=== PATIENT | male | born 1940 | race Native Hawaiian/Other Pacific Islander ===

== ENCOUNTER 2017-03-19 09:57 | Outpatient (CLI) | payer OTHER | END 2017-03-19 18:55 | disposition home or self-care (01) | LOC: RAD 09:57 | DX: M25.512 Pain in left shoulder (principal); M25.532 Pain in left wrist ==

== ENCOUNTER 2017-10-07 13:00 | Outpatient (CLI) | payer OTHER | END 2017-10-07 18:00 | disposition home or self-care (01) | LOC: CT 13:00 | DX: R55 Syncope and collapse (principal) ==

== ENCOUNTER 2018-09-30 11:14 | Outpatient (CLI) | payer OTHER | END 2018-09-30 19:11 | disposition home or self-care (01) | LOC: LABW 11:14 | DX: B35.1 Tinea unguium (principal) | CPT/HCPCS: 36415; 84450; 84460 ==

== ENCOUNTER 2018-10-14 10:36 | Outpatient (CLI) | payer OTHER | END 2018-10-14 20:22 | disposition home or self-care (01) | LOC: RAD 10:36 | DX: R42 Dizziness and giddiness (principal); J44.9 Chronic obstructive pulmonary disease, unspecified ==

== ENCOUNTER 2018-10-29 08:22 | Outpatient (CLI) | payer OTHER ==
[2018-10-29] MEDS ORDERED: SOTA80TA2 PO (19:50)
[2018-10-29] MEDS ORDERED: HYDR25TA60 PO (19:50)
[2018-10-29] MEDS ORDERED: AMLODIPINE BESYLATE PO (19:50)
[2018-10-29] MEDS ORDERED: MECLIZINE25 MG PO (19:51)
[2018-10-29] MEDS ORDERED: LAMICTAL200 MG PO (19:51)
== END 2018-10-29 21:40 | disposition home or self-care (01) ==
LOC: CT 08:22
DX: I25.10 Atherosclerotic heart disease of native coronary artery without angina pectoris (principal)
CPT/HCPCS: 36415; 82565; 84520

== ENCOUNTER 2018-10-29 09:28 | Emergency (ER) | payer OTHER ==
[~2018-10-29] VITALS: Ht 167.6 cm; Wt 44.6 kg
[2018-10-29 11:40] VITALS: BP 127/85; TEMP 98
[2018-10-29] MEDS ORDERED: AMLODIPINE BESYLATE PO (19:50)
[2018-10-29] MEDS ORDERED: SOTA80TA2 PO (19:50)
[2018-10-29] MEDS ORDERED: HYDR25TA60 PO (19:50)
[2018-10-29] MEDS ORDERED: LAMICTAL200 MG PO (19:51)
[2018-10-29] MEDS ORDERED: MECLIZINE25 MG PO (19:51)
== END 2018-10-29 11:40 | disposition home or self-care (01) ==
LOC: ED 09:28
DX: M51.27 Other intervertebral disc displacement, lumbosacral region (principal)
CPT/HCPCS: 99283

== ENCOUNTER 2018-10-29 19:29 | Outpatient (CLI) | payer OTHER ==
[2018-10-29] MEDS ORDERED: AMLODIPINE BESYLATE PO (19:50)
[2018-10-29] MEDS ORDERED: HYDR25TA60 PO (19:50)
[2018-10-29] MEDS ORDERED: SOTA80TA2 PO (19:50)
[2018-10-29] MEDS ORDERED: LAMICTAL200 MG PO (19:51)
[2018-10-29] MEDS ORDERED: MECLIZINE25 MG PO (19:51)
[2018-11-05] MEDS ORDERED: ESCI10TA PO (09:14)
[2018-11-05] MEDS ORDERED: VITAMIN D50000 UNIT PO (09:14)
[2018-11-05] MEDS ORDERED: LEVAQUIN250 MG PO (09:14)
== END 2018-10-29 19:32 | disposition short-term general hospital (02) ==
LOC: AMB 19:29
DX: T44.7X2A Poisoning by beta-adrenoreceptor antagonists, intentional self-harm, initial encounter (principal); Y92.098 Other place in other non-institutional residence as the place of occurrence of the external cause
CPT/HCPCS: A0425; A0427

== ENCOUNTER 2018-10-29 19:36 | Emergency (ER) | payer OTHER ==
[~2018-10-29] VITALS: Ht 167.6 cm; Wt 65.8 kg
[2018-10-29] MEDS ORDERED: SOTA80TA2 PO (19:50)
[2018-10-29] MEDS ORDERED: AMLODIPINE BESYLATE PO (19:50)
[2018-10-29] MEDS ORDERED: HYDR25TA60 PO (19:50)
[2018-10-29] MEDS ORDERED: MECLIZINE25 MG PO (19:51)
[2018-10-29] MEDS ORDERED: LAMICTAL200 MG PO (19:51)
[2018-10-29 20:20] LABS: PLATELET COUNT 258 K/uL (142-355)
[2018-10-29 20:28] LABS: POTASSIUM 2.9 mmol/L (3.6-5.2)
[2018-10-29 23:30] VITALS: BP 149/90; TEMP 98.2
== END 2018-10-29 23:34 | disposition other institution (70) ==
LOC: ED 19:36
PROVIDERS: Emergency Medicine
DX: T44.7X2A Poisoning by beta-adrenoreceptor antagonists, intentional self-harm, initial encounter (principal); Y92.89 Other specified places as the place of occurrence of the external cause
CPT/HCPCS: 80053; 80320; 80329; 82550; 83735; 84484; 85027; 93005; 96365; 99285

== ENCOUNTER 2018-10-30 15:04 | Inpatient (IN) | payer OTHER ==
[2018-10-30] VITALS (9 sets, daily range): BP systolic 108–139; BP diastolic 69–79; TEMP 98.3–98.8; Ht 170.2 cm; Wt 66.2 kg
[~2018-10-30] VITALS: Ht 170.2 cm; Wt 66.2 kg
[~2018-10-30 15:04] MED LIST: AMLODIPINE BESYLATE PO; HYDR25TA60 PO; LAMICTAL200 MG PO; MECLIZINE25 MG PO; SOTA80TA2 PO
[2018-10-31] VITALS (35 sets, daily range): BP systolic 91–166; BP diastolic 45–93; TEMP 98.1–99
[2018-10-31 07:54] LABS: PLATELET COUNT 216 K/uL (142-355)
[2018-10-31 08:02] LABS: POTASSIUM 3.2 mmol/L (3.6-5.2)
[2018-11-01] VITALS (82 sets, daily range): BP systolic 12–160; BP diastolic 48–96; TEMP 97.9–98.9
[2018-11-01 06:19] LABS: PLATELET COUNT 214 K/uL (142-355)
[2018-11-01 06:59] LABS: POTASSIUM 3.5 mmol/L (3.6-5.2)
[2018-11-02] VITALS (33 sets, daily range): BP systolic 113–161; BP diastolic 56–93; TEMP 97.9–98.2
[2018-11-02 05:45] LABS: PLATELET COUNT 247 K/uL (142-355)
[2018-11-02 06:10] LABS: POTASSIUM 3.6 mmol/L (3.6-5.2)
[2018-11-02] MEDS ORDERED: DILT30TA24 PO (17:10)
[2018-11-02] MEDS ORDERED: K-TAB20 MEQ PO (17:11)
[2018-11-02] MEDS ORDERED: PRED10TA27 PO (17:13)
[2018-11-02] MEDS ORDERED: APIX1TAB PO (17:15)
== END 2018-11-02 15:50 | disposition other institution (70) | DRG 190 ==
LOC: ICU 15:04
PROVIDERS: Family Medicine; ADMIT Emergency Medicine
DX: J44.0 Chronic obstructive pulmonary disease with (acute) lower respiratory infection (principal); J18.8 Other pneumonia, unspecified organism; J44.1 Chronic obstructive pulmonary disease with (acute) exacerbation; D72.828 Other elevated white blood cell count; E87.6 Hypokalemia; I10 Essential (primary) hypertension; G62.89 Other specified polyneuropathies; I48.91 Unspecified atrial fibrillation; K59.09 Other constipation; E86.0 Dehydration
CPT/HCPCS: 36415; 80048; 80053; 80202; 85027; 87899; 93005; 94640; 94664; 94760; J1650; J1956; J2930; J3370; J3480; J3490

== ENCOUNTER 2018-12-07 15:59 | Emergency (ER) | payer OTHER ==
[~2018-12-07] VITALS: Ht 170.2 cm; Wt 64.9 kg
[~2018-12-07 15:59] MED LIST changes: +APIX1TAB PO; +DILT30TA24 PO; +ESCI10TA PO; +K-TAB20 MEQ PO; +LEVAQUIN250 MG PO; +PRED10TA27 PO; +VITAMIN D50000 UNIT PO
[2018-12-07 16:04] VITALS: TEMP 98.5
[2018-12-07 17:06] LABS: PLATELET COUNT 234 K/uL (142-355)
[2018-12-07 17:10] VITALS: BP 122/71
[2018-12-07 17:16] LABS: POTASSIUM 3.9 mmol/L (3.6-5.2)
== END 2018-12-07 17:52 | disposition home or self-care (01) ==
LOC: ED 15:59
PROVIDERS: Student in an Organized Health Care Education/Training Program
DX: N41.9 Inflammatory disease of prostate, unspecified (principal); N30.91 Cystitis, unspecified with hematuria
CPT/HCPCS: 80053; 81000; 82150; 83690; 85027; 96360; 99284

== ENCOUNTER 2019-02-14 18:31 | Emergency (ER) | payer OTHER ==
[~2019-02-14] VITALS: Ht 170.2 cm; Wt 64.9 kg
[2019-02-14 18:39] VITALS: BP 243/127; TEMP 98
== END 2019-02-14 18:45 | disposition home or self-care (01) ==
LOC: ED 18:31
DX: I10 Essential (primary) hypertension (principal)
CPT/HCPCS: 99281

== ENCOUNTER 2019-02-26 19:35 | Outpatient (CLI) | payer OTHER ==
[2019-02-26] MEDS ORDERED: NEXIUM40 M1 PO (20:01)
[2019-02-26] MEDS ORDERED: SODIUM BICAR650 MG PO (20:01)
[2019-02-26] MEDS ORDERED: PROZAC10 MG PO (20:01)
[2019-02-26] MEDS ORDERED: OXYGEN (20:02)
== END 2019-02-26 19:37 | disposition short-term general hospital (02) ==
LOC: AMB 19:35
DX: R07.89 Other chest pain (principal)
CPT/HCPCS: A0425; A0427

== ENCOUNTER 2019-02-26 19:41 | Emergency (ER) | payer OTHER ==
[~2019-02-26] VITALS: Ht 170.2 cm; Wt 64.9 kg
[2019-02-26] MEDS ORDERED: NEXIUM40 M1 PO (20:01)
[2019-02-26] MEDS ORDERED: PROZAC10 MG PO (20:01)
[2019-02-26] MEDS ORDERED: SODIUM BICAR650 MG PO (20:01)
[2019-02-26] MEDS ORDERED: OXYGEN (20:02)
[2019-02-26 20:15] LABS: PLATELET COUNT 239 K/uL (142-355)
[2019-02-26 20:50] LABS: POTASSIUM 2.9 mmol/L (3.6-5.2); SODIUM 140 mmol/L (136-145)
[2019-02-26 22:50] VITALS: BP 154/94; TEMP 97.8
== END 2019-02-26 22:53 | disposition home or self-care (01) ==
LOC: ED 19:41
PROVIDERS: Family Medicine
DX: R00.2 Palpitations (principal); E87.6 Hypokalemia; I10 Essential (primary) hypertension; I48.91 Unspecified atrial fibrillation; F17.210 Nicotine dependence, cigarettes, uncomplicated
CPT/HCPCS: 80053; 81000; 82550; 84484; 85027; 93005; 99284

== ENCOUNTER 2019-03-29 13:00 | Emergency (ER) | payer OTHER ==
[~2019-03-29] VITALS: Ht 170.2 cm; Wt 72.6 kg
[2019-03-29 13:00] VITALS: TEMP 98.2
[~2019-03-29 13:00] MED LIST changes: +NEXIUM40 M1 PO; +OXYGEN; +PROZAC10 MG PO; +SODIUM BICAR650 MG PO
[2019-03-29] MEDS ORDERED: ELIQUIS5 MG PO (13:17)
[2019-03-29] MEDS ORDERED: SODI650T PO (13:19)
[2019-03-29] MEDS ORDERED: LORA0.5T17 PO (13:22)
[2019-03-29] MEDS ORDERED: HYDR25TA57 PO (13:22)
[2019-03-29] MEDS ORDERED: TRAMADOL HYDROC50 MG PO (13:23)
[2019-03-29] MEDS ORDERED: ACID REDUCER150 M1 PO (13:24)
[2019-03-29] MEDS ORDERED: MECLIZINE25 MG PO (13:25)
[2019-03-29 14:40] LABS: PLATELET COUNT 219 K/uL (142-355)
[2019-03-29 14:45] LABS: POTASSIUM 2.9 mmol/L (3.6-5.2)
[2019-03-29 16:45] VITALS: BP 163/109
== END 2019-03-29 16:59 | disposition home or self-care (01) ==
LOC: ED 13:00
PROVIDERS: Emergency Medicine
DX: G44.209 Tension-type headache, unspecified, not intractable (principal); E83.42 Hypomagnesemia; R25.2 Cramp and spasm; I10 Essential (primary) hypertension; F17.210 Nicotine dependence, cigarettes, uncomplicated
CPT/HCPCS: 80053; 83735; 85027; 96372; 99283; J3475

== ENCOUNTER 2019-06-03 13:50 | Outpatient (CLI) | payer OTHER ==
[~2019-06-03 13:50] MED LIST changes: +ACID REDUCER150 M1 PO; +ELIQUIS5 MG PO; +HYDR25TA57 PO; +LORA0.5T17 PO; +SODI650T PO; +TRAMADOL HYDROC50 MG PO
== END 2019-06-03 13:53 | disposition short-term general hospital (02) ==
LOC: AMB 13:50
DX: R07.89 Other chest pain (principal); M79.602 Pain in left arm; R94.31 Abnormal electrocardiogram [ECG] [EKG]
CPT/HCPCS: A0425; A0427

== ENCOUNTER 2019-06-03 13:54 | Emergency (ER) | payer OTHER ==
[~2019-06-03] VITALS: Ht 170.2 cm; Wt 66.7 kg
[2019-06-03 13:54] VITALS: BP 195/86; TEMP 97
[2019-06-03 14:38] LABS: PLATELET COUNT 246 K/uL (142-355)
[2019-06-03 14:48] LABS: POTASSIUM 4.6 mmol/L (3.6-5.2)
[2019-06-03 16:00] LABS: PARTIAL THROMBOPLASTIN TIME 29.6 SECONDS (24.5-33.6)
== END 2019-06-03 18:50 | disposition home or self-care (01) ==
LOC: ED 13:59
PROVIDERS: Student in an Organized Health Care Education/Training Program
DX: J44.1 Chronic obstructive pulmonary disease with (acute) exacerbation (principal); J18.9 Pneumonia, unspecified organism; K59.09 Other constipation; R06.02 Shortness of breath; F17.210 Nicotine dependence, cigarettes, uncomplicated; R94.31 Abnormal electrocardiogram [ECG] [EKG]
CPT/HCPCS: 36415; 80053; 81000; 83690; 83735; 83880; 84484; 85027; 85610; 85730; 87040; 93005; 96365; 96366; 99284; J0456; J0696; J2405; J2765; J3475

== ENCOUNTER 2020-05-15 09:39 | Emergency (ER) | payer OTHER ==
[~2020-05-15] VITALS: Ht 170.2 cm; Wt 61.2 kg
[2020-05-15 09:40] VITALS: TEMP 98.7
[2020-05-15 10:10] LABS: PLATELET COUNT 252 K/uL (142-355)
[2020-05-15 10:14] LABS: POTASSIUM 3.7 mmol/L (3.6-5.2)
[2020-05-15 10:25] LABS: PARTIAL THROMBOPLASTIN TIME 28.9 SECONDS (24.5-33.6)
[2020-05-15 15:29] VITALS: BP 146/68
== END 2020-05-15 15:31 | disposition home or self-care (01) ==
LOC: ED 09:39
PROVIDERS: Emergency Medicine Emergency Medical Services
DX: K92.2 Gastrointestinal hemorrhage, unspecified (principal)
CPT/HCPCS: 80053; 82272; 85027; 85610; 85730; 96360; 96375; 99284; J2405

== ENCOUNTER 2020-07-26 14:25 | Inpatient (IN) | payer OTHER ==
[~2020-07-26] VITALS: Ht 170.2 cm; Wt 63.7 kg
[2020-07-26 14:35] VITALS: BP 211/99; TEMP 97
[2020-07-26 16:37] LABS: PLATELET COUNT 253 K/uL (142-355)
[2020-07-26 16:45] LABS: POTASSIUM 4.1 mmol/L (3.6-5.2); SODIUM 139 mmol/L (136-145)
[2020-07-26 17:39] VITALS: BP 152/76
[2020-07-26 20:00] VITALS: BP 133/80; TEMP 97.2
[2020-07-26 20:48] VITALS: BP 144/92; TEMP 98; Ht 170.2 cm; Wt 63.7 kg
[2020-07-27] VITALS: BP 101/58; TEMP 98.4
[2020-07-27 03:59] VITALS: BP 117/72; TEMP 98.6
[2020-07-27 08:00] VITALS: BP 153/74; TEMP 98.2
[2020-07-27 12:13] VITALS: BP 148/72; TEMP 98.8
== END 2020-07-27 14:24 | disposition home or self-care (01) | DRG 204 ==
LOC: ED 14:25 → MED/SURG 17:30
PROVIDERS: Hospitalist; ADMIT Internal Medicine; ATTEND Internal Medicine
DX: R04.2 Hemoptysis (principal); R51.9 Headache, unspecified; I48.91 Unspecified atrial fibrillation; Z79.01 Long term (current) use of anticoagulants; I10 Essential (primary) hypertension; K21.9 Gastro-esophageal reflux disease without esophagitis; J43.9 Emphysema, unspecified
CPT/HCPCS: 36415; 80053; 82550; 83880; 84484; 85027; 85379; 85610; 85730; 93005; 94760; 96374; 96375; 96376; 99284; J0360; J1650; J2270; J2405; J3490

== ENCOUNTER 2020-08-08 08:33 | Emergency (ER) | payer OTHER ==
[~2020-08-08] VITALS: Ht 170.2 cm; Wt 63.5 kg
[2020-08-08 08:33] VITALS: TEMP 97.3
[2020-08-08 09:25] LABS: PLATELET COUNT 291 K/uL (142-355)
[2020-08-08 09:36] LABS: POTASSIUM 4.2 mmol/L (3.6-5.2); SODIUM 143 mmol/L (136-145)
[2020-08-08 13:30] VITALS: BP 161/89
== END 2020-08-08 13:48 | disposition home or self-care (01) ==
LOC: ED 08:35
PROVIDERS: Family Medicine
DX: R07.89 Other chest pain (principal); R91.8 Other nonspecific abnormal finding of lung field; R05 Cough; R11.2 Nausea with vomiting, unspecified; Z03.818 Encounter for observation for suspected exposure to other biological agents ruled out
CPT/HCPCS: 80053; 82550; 84484; 85027; 85379; 87635; 93005; 96374; 99284; J2405; U0003

== ENCOUNTER 2020-10-15 09:39 | Inpatient (IN) | payer OTHER ==
[2020-10-15] VITALS (7 sets, daily range): BP systolic 99–159; BP diastolic 58–75; TEMP 98–98.5; Ht 170.2 cm; Wt 63.8 kg
[~2020-10-15] VITALS: Ht 170.2 cm; Wt 63.8 kg
[2020-10-15 10:15] LABS: PLATELET COUNT 271 K/uL (142-355)
[2020-10-15 10:21] LABS: POTASSIUM 3.8 mmol/L (3.6-5.2)
[2020-10-15 10:32] LABS: PARTIAL THROMBOPLASTIN TIME 19.4 SECONDS (24.5-33.6)
--- NOTE | 2020-10-15 14:34 | NUR ---
CONTACTED [facility] TMLLIMR-[phone] AND REQUESTED HP, HOME MED LIST AND OTHER PERTINENT INFORMATION BE FAXED TO [facility].
[2020-10-15] MEDS ORDERED: SENNA PLUS 50-81 CAP PO (15:15)
[2020-10-15] MEDS ORDERED: PLAV PO (15:16)
[2020-10-15] MEDS ORDERED: LABETALOL200 MG PO (15:18)
[2020-10-15] MEDS ORDERED: OXYC5TAB24 PO (15:18)
[2020-10-15] MEDS ORDERED: D325 MCG PO (15:19)
[2020-10-15] MEDS ORDERED: DIPH50CA30 PO (15:20)
[2020-10-15] MEDS ORDERED: ONDANSETRON4 M2 PO (15:20)
[2020-10-15] MEDS ORDERED: HYOS0.128 PO (16:46)
[2020-10-15] MEDS ORDERED: MORP20SO3 SL (16:51)
[2020-10-15] MEDS ORDERED: HALO2CON2 PO (16:52)
[2020-10-15] MEDS ORDERED: ACET650S18 RE (16:53)
[2020-10-15] MEDS ORDERED: ALBUSOL INH (16:55)
[2020-10-15] MEDS ORDERED: PROCHLORPER10 MG PO (16:58)
[2020-10-15] MEDS ORDERED: ACET-689 PO (16:58)
--- NOTE | 2020-10-15 17:30 | NUR ---
VERIFIED WITH PT'S CAREGIVER KWAME WARD AT [phone] THAT SHE WANTED TO CONTINUE T0 HONOR PT'S WISHES TO BE A DNR. VERBAL CONSENT GIVEN OVER THE PHONE WITH Olivia RICHMOND RNCN WITNESS. DR ADAMS AWARE. PT'S FAMILY ALSO STATES SHE PLANS TO READMIT TO HOSPICE AFTER D/C FROM HOSPITAL, BUT TO TREAT PT FOR PNA WHILE HERE. DR. ADAMS UPDATED.
--- NOTE | 2020-10-15 19:44 | NUR ---
T/O DR. ADAMS- TO RESTART PT HOME DOSE OXYCODONE.
--- NOTE | 2020-10-16 01:26 | NUR ---
PATIENTIS UP IN BED EATING A SNACK
[2020-10-16 04:32] VITALS: BP 189/84; TEMP 97.4
[2020-10-16 07:44] LABS: PLATELET COUNT 297 K/uL (142-355)
[2020-10-16 07:49] LABS: POTASSIUM 4.4 mmol/L (3.6-5.2)
[2020-10-16 08:00] VITALS: BP 187/86; TEMP 97.9
--- NOTE | 2020-10-16 10:00 | NUR ---
WENT INTO PT'S ROOM, PANCHOUGHTER WAS AT BEDSIDE VISITING. STEPDAUGHTER STATED THAT PT HAD TOLD HER THAT ONE OF THE MEDICAL PERSONEL HAD TOLD HIM THAT HE HAD AIDS, AVIONICS SUPERVISOR CONFIRMED THAT AVIONICS SUPERVISOR DID NOT TELL PT THAT AND DID NOT KNOW WHERE THAT INFORMATION HAD COME FROM. PANCHOUGHTER THEN ASKED IF PT WOULD CONTINUE TO TALK ABOUT CRAZY THINGS. WHEN ASKED BY AVIONICS SUPERVISOR IF PT HAD EVER BEEN DIAGNOSED WITH DEMENTIA, STEPCAROLEUGHTER STATED THAT PT HAD NOT BEEN DIAGNOSED. STEPCAROLEUGHTER STATED THAT AT HOME PT TALKS ABOUT "CRAZY THINGS THAT DO NOT MAKE SENSE" STEPDAUGHTER ALSO STATED THAT OCCASSIONALLY PT STATES THAT HE SEES SPIRITS. PT STATED THAT HE DOES SEE SPIRITS, THAT HE SEES HIS OCCASSIONALLY AND A BLACK MAN.
[2020-10-16 12:00] VITALS: BP 191/83; TEMP 97.9
[2020-10-16 16:00] VITALS: BP 194/98; TEMP 97.9
--- NOTE | 2020-10-16 20:20 | NUR ---
ENTERED PATIENT'S ROOM. PATIENT SITTING UP IN BED WATCHING TV. NAD NOTED. RESPIRATIONS SLOW BUT UNLABORED. NC OFF- PATIENT NON-COMPLIANT WITH WEARING. 22G TO LEFT FOREARM PATENT AND INTACT. NS INFUSING @ 100ML/HR. PATIENT ALERT AND ORIENTED AT THIS TIME. C/O BACK PAIN. OXYCODONE GIVEN WITH PM MEDS. 2000 V/S- B/P 224/111 BY MACHINE. MANUAL B/P WAS 220/104. B/P MEDS GIVEN.
--- NOTE | 2020-10-16 22:15 | NUR ---
IN TO RE-CHECK PATIENT'S B/P. HE IS RESTING QUIETLY IN BED. MANUAL B/P IS 198/96 AT THIS TIME. NAD NOTED. AGAIN PLACED NC ON PATIENT. CALL LIGHT WITHIN EASY REACH.
[2020-10-17] VITALS: BP 166/95; TEMP 97.4
--- NOTE | 2020-10-17 02:10 | NUR ---
IN WITH PCT TO CHANGE PATIENT'S BRIEF AND LINENS. PATIENT TOLERATED WELL. 22G TO LEFT FA INFUSING NS @ 100. INSTRUCTED COLOR CONTROL OPERATOR LIGHT AND HOW TO USE IT AGAIN. PLACED WITHIN EASY REACH OF PATIENT. BED LOCKED AND IN LOWEST POSITION.
--- NOTE | 2020-10-17 03:15 | NUR ---
ENTERED PATIENT'S ROOM. PATIENT SITTING ON THE FLOOR IN FRONT OF HIS BED WHILE HIS BACK IS UP AGAINST THE WALL. BLOOD IS ON THE FLOOR FROM WHERE THE PATIENT TOOK OUT HIS IV. HE STATES, "I WAS GETTING UP TO GO TO THE BATHROOM." WHEN ASKED WHY DIDN'T HE CALL. HE STATES THAT HE DID CALL. FALL WAS UNWITNESSED, BUT PATIENT STATES HE DID HIT HIS HEAD, ALTHOUGH HE ONLY C/O NECK PAIN AT THIS TIME. WHEN PROMPTED, PATIENT RESPONDS NORMALLY TO ALL QUESTIONS REGARDING PERSON, PLACE AND TIME. NO MENTAL STATUS CHANGES NOTED. BLOOD CLEANED UP, V/S TAKEN AND PATIENT ASSISTED BACK INTO BED WITH ASSISTANCE X3. PATIENT STILL C/O NECK PAIN. BED ALARM TURNED ON. 0345- JOSE MANUEL REAL RN CALLED DR. BARCLAY AT THIS TIME TO REPORT FALL. 2-3V C-SPINE ORDERED. NO FURTHER ORDERS GIVEN. AT THIS TIME, I MADE ONE ATTEMPT TO OBTAIN NEW IV SITE. ATTEMPT UNSUCCESSFUL. 0400- INA COSBY FROM ER ATTEMPTED IV SITE. 20G TO LEFT AC X ONE STICK. SUCCESSFUL. IV PATENT AND INTACT. NO SWELLING NOTED. NS INFUSING @ 100ML/HR. 0415- V/S OBTAINED. PATIENT'S B/P REMAINS ELEVATED. 204/102. B/P WAS ELEVATED AT BEGINNING OF SHIFT PRIOR TO PATIENT'S FALL. 0430- LEAD SQL DEVELOPER TAKING PATIENT TO X-RAY VIA W/C. 0445- PATIENT RETURNED TO ROOM. NS INFUSING @ 100ML/HR. NAD NOTED. BED LOCKED AND IN LOWEST POSITION. CALL LIGHT WITHIN REACH. BED ALARM ON. CALLED DR. BARCLAY TO INFORM HIM ABOUT PATIENT'S B/P. TELEPHONE ORDER GIVEN FOR HYDRALAZINE 25MG 1 TAB PO X ONE DOSE NOW.
[2020-10-17 04:00] VITALS: BP 204/102; TEMP 98
--- NOTE | 2020-10-17 05:06 | NUR ---
Patient was admitted with Pneumonia and chronic atrial fib and has a diagnosis of HTN, Hyperlipidemia, lung cancer, and is on Hospice, COPD, TIA, PVD, Anxiety, Dementia, DM, smokes 1 ppd, is on SSI, BP at 166/95 elevated, o2, Cl, BUN, gl all elevated, seizures, back pain, Hypokalemia, Vitamin D Deficiency, Depression, Alcohol D/O, emphysema, RBC, Hgb, Hct, MCHC, Nicotine, and is 67" at 140.8 lbs. and is an 80 yom. IBW = 148+/-10% and kcal needs x 25 to 40 = 1600 to 2700 kcal/day, protein needs x .8 to 1.5 = 54 to 101 grams per dya and fluids for IBW x 25 to 40 = 1600 to 2700 ml/cc per day. BMI at 22 and is wnl's and is 95% of IBW. RD Recommendations: 1-Monitor labs 2-Increae foods high in Fe 3-PT to work with the patient 4-OT to work wiht the patient 5-Add a MVI daily 6-Add an appetite stimulant 7-Add a supplement with meals 8-Add Vitamin C [address] available as needed.
--- NOTE | 2020-10-17 05:30 | NUR ---
PATIENT STATES HE FEELS BETTER, BUT STILL HAS MILD NECK PAIN. HYDRALAZINE 25MG AND TYLENOL 1GM GIVEN AT THIS TIME. NC INTACT @ 3L/MIN. BED LOCKED AND IN LOWEST POSITION. CALL LIGHT WITHIN REACH AND BED ALARM ON. PATIENT DENIES ANY OTHER CONCERNS OR COMPLAINTS AT THIS TIME.
[2020-10-17 07:52] VITALS: BP 164/100; TEMP 97.8
[2020-10-17 08:06] LABS: PLATELET COUNT 329 K/uL (142-355)
[2020-10-17 08:17] LABS: POTASSIUM 3.3 mmol/L (3.6-5.2)
--- NOTE | 2020-10-17 08:56 | NUR ---
ATTEMPTED TO CALL PT'S DAUGHTER KWAME WARD TO NOTIFY HER OF PT'S FALL LAST NIGHT. NO ANSWER AT THIS TIME WILL CON'T TO TRY TO CALL TO UPDATE HER ON PT'S CURRENT STATUS.
--- NOTE | 2020-10-17 09:09 | NUR ---
SPOKE WITH PT'S DAUGHTER. UPDATE GIVEN PT'S DAUGHTER. PT'S DAUGHTER KWAME STATES SHE IS IN THE ER AT THIS TIME HAVING HER ANKEL XRAYED AND SHE WILL COME CHECK ON HIM WHEN SHE GETS THROUGH. NOTIFIED OF PT'S FALL LAST NIGHT.
--- NOTE | 2020-10-17 11:42 | NUR ---
Pts step daughterLauren [phone] in my office to ask about pts discharge status. She stated that pt was a DNR and on [facility] hospice prior to this admit. She states she takes care of pt at home and that [facility] hospice assists her. She stated she plans for pt to return home with her and that they have all of the equipment and support that they need at home. She was concerned that [facility] hospice was not seeing him during this admission and i explained to her that if he was ready for discharge that we could notify hospice on discharge so that they could resume services if this is what she and pt wanted. She stated "yes" that she wanted pt to return home with hospice when the dr felt he was ready. Itold her that Dr. Pacheco stated he would probably go home on oral antibiotics, she verbalized understanding. I was able to reach the [facility] hospice nurse Karolyn Velazquez, [place] [phone] and she stated that pts step daughterLauren is the primary caregiver at home and that the hospice nurse visits approx 3x per week and the hospice aid also visits approx 3 x per week. Karolyn stated that Lauren is able to manage the pts care with the help of their services. She states that the pt is a DNR and they faxed it over to us on admit. she also stated that pt has all of the equipment that he may need at home including hospital bed, rollator, walker, oxygen, BSC, shower chair. I will ask the nurses to make sure they notift hospice on discharge or to let us know when she is ready for discharge.
[2020-10-17 12:00] VITALS: BP 140/100; TEMP 98.2
--- NOTE | 2020-10-17 12:40 | NUR ---
SOBIA GARY FROM [facility] HERE TO SEE PT.
--- NOTE | 2020-10-17 12:46 | NUR ---
BRANDI, PCT REPORTS PT'S BP REMAINS ELEVATED AT 140/100 MANUAL. HYDRALAZINE 10MG IVSP GIVEN AT THIS TIME PER MD ORDERS.
--- NOTE | 2020-10-17 14:21 | NUR ---
SPOKE WITH ANDRÉS FROM [facility] TO GIVE UPDATE.
[2020-10-17 16:27] VITALS: BP 140/92; TEMP 97.7
[2020-10-17 20:00] VITALS: BP 183/93; TEMP 97.7
--- NOTE | 2020-10-17 20:20 | NUR ---
ENTERED PATIENT'S ROOM. PATIENT RESTING QUIETLY IN BED WATCHING TV. NAD NOTED. REPORTS MILD STOMACH PAIN. SHIFT ASSESSMENT PERFORMED. ON 10/16/20, PATIENT INFORMED ME THAT HIS LBM WAS ON 10/16, BUT NO BOWEL MOVEMENT HAS BEEN DOCUMENTED FOR THAT DAY. LAST KNOWN BM WAS 10/13/20. OFFERED PATIENT MOM BUT PATIENT STATES HE WANTS TO WAIT A LITTLE BIT. ABLE TO ANSWER QUESTIONS CORRECTLY ABOUT PERSON, PLACE AND TIME, BUT PATIENT NOTED TO BE CONFUSED AT TIMES. 20G TO LEFT AC PATENT AND INTACT. NS INFUSING @ 100ML/HR. BED LOCKED AND IN LOWEST POSITION. CALL LIGHT WITHIN REACH. BED ALARM ON.
--- NOTE | 2020-10-17 22:00 | NUR ---
MYSELF AND PCT ASSISTED PATIENT TO BSC. STILL NO BM. MOM GIVEN AT THIS TIME. ASSISTED PATIENT BACK INTO BED. CALL LIGHT IN REACH. BED ALARM ON.
[2020-10-18] VITALS: BP 203/98; TEMP 97.9
--- NOTE | 2020-10-18 00:10 | NUR ---
V/S SHOW B/P OF 203/98. WILL GIVE HYDRALAZINE 10MG VIA IV AND RE-ASSESS.
[2020-10-18 04:00] VITALS: BP 192/93; TEMP 97.5
[2020-10-18 05:32] LABS: PLATELET COUNT 323 K/uL (142-355)
[2020-10-18 05:39] LABS: POTASSIUM 3.3 mmol/L (3.6-5.2)
--- NOTE | 2020-10-18 05:39 | NUR ---
PATIENT RESTING QUIETLY IN BED. HYDRALAZINE 10MG IV GIVEN @ 0420. B/P TAKEN AT THIS TIME AND IS 164/83 NOW. NAD NOTED. BED ALARM ON. CALL LIGHT WITHIN EASY REACH.
[2020-10-18] MEDS ORDERED: ZYVOX PO (08:54)
--- NOTE | 2020-10-18 10:35 | NUR ---
DC INSTRUCTIONS EXPLAINED TO PT'S CAREGIVER WHO VERBALIZED UNDERSTANDING. PT DC HOME WITH [facility] TO BE READMITTED TO THE [facility] HOME [facility]OSPICE. PT AND CAREGIVER LEFT FLOOR IN [facility] SENT HOME WITH PT.
--- NOTE | 2020-10-18 13:06 | NUR ---
CALLED [facility] FOR A NEW RX PER ; MEDICATION- LEVAQUIN 500 MG PO, 1 X DAILY FOR 5 DAYS, 0 REFILLS. CALLED AND NOTIFIED PATIENT OF NEW MEDICATION.
== END 2020-10-18 10:35 | disposition home health service (06) | DRG 190 ==
LOC: ED 09:39 → MED/SURG 12:17
PROVIDERS: Hospitalist; ADMIT Internal Medicine Endocrinology, Diabetes & Metabolism; ATTEND Internal Medicine Endocrinology, Diabetes & Metabolism
DX: J44.0 Chronic obstructive pulmonary disease with (acute) lower respiratory infection (principal); J18.8 Other pneumonia, unspecified organism; C34.12 Malignant neoplasm of upper lobe, left bronchus or lung; I48.92 Unspecified atrial flutter; N17.8 Other acute kidney failure; K21.9 Gastro-esophageal reflux disease without esophagitis; E78.49 Other hyperlipidemia; I10 Essential (primary) hypertension; E11.42 Type 2 diabetes mellitus with diabetic polyneuropathy; Z86.73 Personal history of transient ischemic attack (TIA), and cerebral infarction without residual deficits; M54.2 Cervicalgia; W18.39XA Other fall on same level, initial encounter; Y92.230 Patient room in hospital as the place of occurrence of the external cause
CPT/HCPCS: 36415; 36600; 80048; 80053; 80200; 81000; 82550; 82805; 83605; 83880; 84484; 85027; 85610; 85730; 87040; 87635; 93005; 94760; 96360; 96361; 96365; 99284; J0360; J1100; J1650; J3260; J3370; J3490; U0003